=== PATIENT | female | born 1940 ===

== ENCOUNTER 2016-08-20 20:37 | Inpatient (IN) | payer MEDICARE, OTHER ==
[2016-08-20 20:37] VITALS: BMI 22.8
[2016-08-20] MEDS ORDERED: Sodium Chloride 0.9% 1,000 ML IV STA (21:21)
[2016-08-20] MEDS ORDERED: Iohexol 240 (50 ml) PO ONE (21:21)
[2016-08-20] MEDS ORDERED: Iohexol 240 (50 ml) ONE (21:51)
--- NOTE | 2016-08-20 22:02 | ED PDOC ---
HPI: General Adult Time Seen by Provider: 08/20/16 21:06 Chief Complaint (Nursing): Flu-like Symptoms Chief Complaint (Provider): Fever, fall History Per: Patient, Family (son) Additional Complaint(s): Pt. presents with son and states for the past week she's had fever, bodyaches, cough. States that 2 days ago while taking a shower she slipped on soap and landed on her R side injuring her R hip and R flank area. Pt. was able to get up on her own immediately. Denies hematuria, head injury, sick contacts, recent travel, N/V/D, melena, hematochezia, BRBPR, neck pain. Past Medical History Reviewed: Historical Data, Nursing Documentation, Vital Signs Vital Signs: Last Vital Signs Temp 97.4 F L 08/21/16 03:30 Pulse 82 08/21/16 03:30 Resp 19 08/21/16 03:30 BP 94/55 L 08/21/16 03:30 Pulse Ox 99 08/20/16 22:02 - Medical History PMH: Bronchitis, CHF, Gall Bladder Disease (Cholelithiasis), HTN, Hypercholesterolemia, Pneumonia Denies: Diabetes, HIV, Chronic Kidney Disease - Family History Family History: States: No Known Family Hx - Home Medications Home Medications: Ambulatory Orders Medication Instructions Recorded Pentoxifylline [Pentoxil] 400 mg PO TID #0 ter 03/07/15 Tramadol Hydrochloride [Tramadol] 50 mg PO DAILY #0 tab 03/07/15 traMADol [Ultram] 50 mg PO TID PRN #12 tab 07/12/15 - Allergies Allergies/Adverse Reactions: Allergies Allergy/AdvReac Type Severity Reaction Status Date / Time cefadroxil Allergy RASH Verified 08/20/16 20:40 Review of Systems ROS Statement: Except As Marked, All Systems Reviewed And Found Negative Constitutional: Positive for: Fever Respiratory: Positive for: Cough Gastrointestinal: Positive for: Abdominal Pain Physical Exam - Reviewed Nursing Documentation Reviewed: Yes Vital Signs Reviewed: Yes - Physical Exam Appears: Positive for: Well, Non-toxic, No Acute Distress Head Exam: Positive for: ATRAUMATIC, NORMAL INSPECTION, NORMOCEPHALIC Skin: Positive for: Normal Color, Warm. Negative for: Rash Eye Exam: Positive for: EOMI, Normal appearance, PERRL ENT: Positive for: Normal ENT Inspection Neck: Positive for: Normal, Painless ROM Cardiovascular/Chest: Positive for: Regular Rate, Rhythm Respiratory: Positive for: Normal Breath Sounds. Negative for: Crackles, Rales Gastrointestinal/Abdominal: Positive for: Normal Exam, Bowel Sounds, Soft, Tenderness (RLQ abdominal tenderness) Back: Positive for: Normal Inspection, R CVA Tenderness (with large ecchymotic area) Extremity: Positive for: Normal ROM, Other (R lateral hip tenderness without pelvic tenderness or deformity). Negative for: Calf Tenderness Neurologic/Psych: Positive for: Alert, Oriented - Laboratory Results Result Diagrams: 08/20/16 21:40 08/21/16 01:55 - ECG O2 Sat by Pulse Oximetry: 99 - Radiology X-Ray: Interpreted by Me (CXR) X-Ray Interpretation: No Acute Disease (RML infiltrate) - Progress ED Course And Treament: Levaquin 500mg IV given for pneumonia. Lactate: 1.8. Chemisty hemolyzed multiple times therefore CT was done without IV contrast. CT abd/pelvis w/ PO contrast: MPRESSION: 1. Probable multifocal pneumonia. Followup to resolution to exclude underlying pathology. 2. Suspect sacral fracture. Correlate clinically for pain in region. 3. Cholelithiasis R hip/pelvic x-ray: no fx IV NS bolus given. Case d/w Dr. Gibbs and informed of lack of IV contrast with CT scan. Arrangements made for admission. ED OBSERVATION Date of observation admission: 08/20/16 Time of observation admission: 22:02 - Observation admission statement Patient is being placed in observation because:: Abdominal pain, fall, fever - Progress Note Progress Note: 08/20/16 22:[address] abd/pelvis, CT head, CXR, R hip x-ray ordered. Disposition - Clinical Impression Clinical Impression: Pneumonia, Traumatic ecchymosis of flank - Patient ED Disposition Is Patient to be Admitted: Yes - Disposition Disposition Time: :17 Condition: STABLE
[2016-08-20 22:33] LABS: BASO # 0.1 K/uL (0.0-0.2); BASO % 0.3 % (0.0-2.0); LYMPH # 2.8 K/uL (1.0-4.3); MEAN CELL VOLUME 96.3 fl (81.0-99.0); MEAN CORPUSCULAR HGB CONC 32.2 g/dL (33.0-37.0); MEAN PLATELET VOLUME 9.1 fl (7.2-11.7); MONO # 1.9 K/uL (0.0-0.8); MONO % 6.7 % (0.0-10.0); NEUT # 23.5 K/uL (1.8-7.0); NRBC % 0.1 % (0.0-0.0); RED CELL DISTRIBUTION WIDTH 13.8 % (11.5-14.5); WHITE BLOOD COUNT 28.3 K/uL (4.8-10.8)
[2016-08-21 00:08] LABS: VENOUS BLOOD GAS BASE EXCESS -13.3 mmol/L (0.0-2.0); VENOUS BLOOD GAS MODE ROOM AIR; VENOUS BLOOD GAS PCO2 62 mmHg (40-60); VENOUS BLOOD PH 7.06 (7.32-7.43)
[2016-08-21] MEDS ORDERED: Iohexol 300 50 ML ONE (00:12)
[2016-08-21] MEDS ORDERED: Sodium Chloride 0.9% 50 ML IV ONE (00:12)
--- NOTE | 2016-08-21 00:26 | CT ---
EXAM: CT Head Without Intravenous Contrast. CLINICAL HISTORY: 75 years old, female; Injury or trauma; Fall; Initial encounter; Blunt trauma (contusions or hematomas) TECHNIQUE: Axial computed tomography images of the head/brain without intravenous contrast. This CT exam was performed using one or more of the following dose reduction techniques: automated exposure control, adjustment of the mA and/or kV according to patient size, and/or use of iterative reconstruction technique. Coronal and sagittal reformatted images were created and reviewed. COMPARISON: CT - HEAD W/O CONTRAST 03/18/2014 8:14:09 AM FINDINGS: Brain: Mild atrophy. No intracranial hemorrhage. No mass. Calcifications of basal ganglia, deep white matter, cerebellum, stable. Minimal decreased attenuation within periventricular white matter. No edema. Ventricles: No hydrocephalus. Bones/joints: No acute fracture. Soft tissues: Unremarkable. Vasculature: Minimal atherosclerotic disease of intracranial arteries. Sinuses: Near complete opacification of LEFT maxillary sinus. [id number] mucosal thickening/fluid of RIGHT maxillary sinus. [id number] mucosal thickening/fluid of sphenoid sinuses. Mild mucosal thickening/fluid of frontal sinuses. Moderate to extensive mucosal thickening/opacification of ethmoid sinuses. Mastoid air cells: Partial opacification of LEFT mastoid. Orbits: Unremarkable as visualized. IMPRESSION: 1. No intracranial hemorrhage. 2. Nonspecific white matter changes. 3. Sinus disease. 4. Mastoid disease. 5. Incidental/non-acute findings are described above.
--- NOTE | 2016-08-21 00:54 | CT ---
EXAM: CT Abdomen and Pelvis With Intravenous Contrast. CLINICAL HISTORY: 75 years old, female; Pain; Abdominal pain; Flank; Right; Additional info: Fall, abd pain TECHNIQUE: Axial computed tomography images of the abdomen and pelvis with intravenous contrast. This CT exam was performed using one or more of the following dose reduction techniques: automated exposure control, adjustment of the mA and/or kV according to patient size, and/or use of iterative reconstruction technique. Coronal and sagittal reformatted images were created and reviewed. COMPARISON: No relevant prior studies available. FINDINGS: Limitations: Lack of intravenous contrast. Motion artifact - mild. Lower thorax: Minimal atelectasis. Mild patchy and confluent airspace opacities RIGHT middle, LEFT lower lobes. ABDOMEN: Liver: Unremarkable. No mass. Gallbladder and bile ducts: Calcified gallstones. No ductal dilation. Pancreas: No ductal dilation. No mass. Spleen: No splenomegaly. Adrenals: No mass. Kidneys and ureters: No renal calculi. Stomach and bowel: No definite mural thickening. No obstruction. Appendix: No findings to suggest acute appendicitis. PELVIS: Bladder: Unremarkable. Reproductive: Unremarkable as visualized. ABDOMEN and PELVIS: Intraperitoneal space: No significant fluid collection. No free air. Bones/joints: Acute angulation anterior cortex distal sacrum. Soft tissues: Unremarkable. Vasculature: Unremarkable. No abdominal aortic aneurysm. Lymph nodes: No pathologically enlarged lymph nodes. IMPRESSION: 1. Probable multifocal pneumonia. Followup to resolution to exclude underlying pathology. 2. Suspect sacral fracture. Correlate clinically for pain in region. 3. Cholelithiasis. 4. Incidental/non-acute findings are described above.
[2016-08-21 01:51] LABS: ABG ALLEN TEST YES; ARTERIAL BLOOD GAS HCO3 23.8 mmol/L (21-28); ARTERIAL BLOOD GAS MODE ROOM AIR; ARTERIAL BLOOD GAS PH 7.49 (7.35-7.45); ARTERIAL BLOOD GAS PO2 86 mm/Hg (80-100)
[2016-08-21 02:07] LABS: ALKALINE PHOSPHATASE 745 U/L (38-126); ALT/SGPT 45 U/L (9-52); AST/SGOT 58 U/L (14-36); BILIRUBIN,TOTAL 5.1 mg/dl (0.2-1.3); BLOOD UREA NITROGEN 21 mg/dl (7-17); CALCIUM 7.9 mg/dL (8.4-10.2); CARBON DIOXIDE 16 mmol/L (22-30); CHLORIDE 99 mmol/L (98-107); GFR AFRICAN-AMERICAN > 60; GLUCOSE,RANDOM 103 mg/dL (65-105); POTASSIUM 3.3 MMOL/L (3.6-5.0); SODIUM 125 mmol/l (132-148); TOTAL PROTEIN 6.8 G/DL (6.3-8.2)
[2016-08-21 02:08] LABS: ALB/GLOB RATIO 0.7 (1.0-2.1)
[2016-08-21] MEDS ORDERED: Sodium Chloride 0.9% 1,000 ML IV STA (02:12)
--- NOTE | 2016-08-21 02:25 | CP.PCM.HP ---
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 She has been feeling pain on the R side. She did not hit her head or have LOC. She also notes some respiratory symptoms and fatigue. Respiratory symptoms including cough and congestion started several days ago but got worse over past 2 days. Denies f/c/n/v/d. PMD: Charli ROS: 14 systems reviewed, negative other than HPI MHx: CREST syndrome/Reynauds, HTN, HLD, ?CHF, and cholelithiasis Allergies: Cefadroxil Medications: Pending Family Hx: Reviewed, no findings Social Hx: Lives at home, no tobacco or EtOH Surrogate Decision Maker: Iris, child Present on Admission - Present on Admission Any Indicators Present on Admission: No Past Patient History - Infectious Disease Hx of Infectious Diseases: None - Tetanus Immunizations Tetanus Immunization: Unknown - Past Medical History & Family History Past Medical History?: Yes - Past Social History Smoking Status: Never Smoked - CARDIAC Hx Congestive Heart Failure: Yes Hx Hypercholesterolemia: Yes Hx Hypertension: Yes - PULMONARY Hx Bronchitis: Yes Hx Pneumonia: Yes - NEUROLOGICAL Hx Neurological Disorder: No - HEENT Hx HEENT Problems: No - RENAL Hx Chronic Kidney Disease: No - ENDOCRINE/METABOLIC Hx Endocrine Disorders: No - HEMATOLOGICAL/ONCOLOGICAL Hx Human Immunodeficiency Virus (HIV): No - INTEGUMENTARY Hx Dermatological Problems: No - MUSCULOSKELETAL/RHEUMATOLOGICAL Hx Musculoskeletal Disorders: Yes Hx Falls: No Other/Comment: raynauds CREST syndrome; skin graft left foot (05/2013) and right posterior leg (2009) - GASTROINTESTINAL Hx Gall Bladder Disease: Yes (Cholelithiasis) - GENITOURINARY/GYNECOLOGICAL Hx Genitourinary Disorders: No - PSYCHIATRIC Hx Psychophysiologic Disorder: No Hx Substance Use: No - SURGICAL HISTORY Hx Surgeries: Yes Hx Cataract Extraction: Yes Other/Comment: BLE skin grafts. Foot Surgery - ANESTHESIA Hx Anesthesia: Yes Hx Anesthesia Reactions: No Hx Malignant Hyperthermia: No Meds Allergies/Adverse Reactions: Allergies Allergy/AdvReac Type Severity Reaction Status Date / Time cefadroxil Allergy RASH Verified 08/20/16 20:40 Physical Exam - Constitutional Appears: No Acute Distress - Head Exam Head Exam: ATRAUMATIC, NORMOCEPHALIC - Eye Exam Eye Exam: EOMI, PERRL - ENT Exam ENT Exam: Mucous Membranes Moist - Neck Exam Neck exam: Positive for: Full Rom - Respiratory Exam Respiratory Exam: Rhonchi, NORMAL BREATHING PATTERN - Cardiovascular Exam Cardiovascular Exam: REGULAR RHYTHM, +S1, +S2 - GI/Abdominal Exam GI & Abdominal Exam: Normal Bowel Sounds, Soft - Extremities Exam Extremities exam: Positive for: full ROM, normal inspection - Neurological Exam Neurological exam: Alert, CN II-XII Intact, Oriented x3 - Psychiatric Exam Psychiatric exam: Normal Affect, Normal Mood - Skin Skin Exam: Dry, Warm Results - Vital Signs Recent Vital Signs: Last Vital Signs Temp 97.8 F 08/20/16 20:41 Pulse 114 H 08/20/16 20:41 Resp 14 08/20/16 20:41 BP 110/57 L 08/20/16 20:41 Pulse Ox 99 08/20/16 22:02 - Labs Result Diagrams: 08/20/16 21:40 08/21/16 01:55 - Imaging and Cardiology CT scan - abdomen Status: Report reviewed by me (No fx, cholecystitis) Assessment & Plan (1) CAP (community acquired pneumonia) Assessment and Plan: This is a 75 y/o female with multiple chronic problems presenting with CAP and falls. Also with hyponatremia. -Admit med/surg -Continue Levaquin 750 IV daily -Duonebs q6h PRN -Hyponatremia likely 2/2 vol dep; hydrate overnight and recheck BMP; if not improved, further w/u -Pain mgmt with tylenol and tramadol -DVT PPx -- Lovenox Status: Acute Priority: High (2) DVT prophylaxis Status: Acute Priority: High
[2016-08-21] MEDS ORDERED: Albuterol-Ipratrop 3 mg / 0.5 (3 ml) UD INH PRN (02:27)
[2016-08-21] MEDS ORDERED: Sodium Chloride 0.9% 1,000 ML IV SCH (02:30)
[2016-08-21 06:46] LABS: BASO % 0.2 % (0.0-2.0); HEMATOCRIT 30.1 % (34.0-47.0); LYMPH # 2.3 K/uL (1.0-4.3); LYMPH % 9.2 % (20.0-40.0); MEAN CELL VOLUME 93.2 fl (81.0-99.0); MEAN CORPUSCULAR HEMOGLOBIN 31.6 pg (27.0-31.0); MEAN PLATELET VOLUME 9.4 fl (7.2-11.7); MONO # 1.8 K/uL (0.0-0.8); MONO % 7.4 % (0.0-10.0); NEUT # 20.3 K/uL (1.8-7.0); NEUT % 83.2 % (50.0-75.0); PLATELET COUNT 170 K/uL (130-400); RED CELL DISTRIBUTION WIDTH 13.3 % (11.5-14.5); WHITE BLOOD COUNT 24.5 K/uL (4.8-10.8)
[2016-08-21 07:23] LABS: BLOOD UREA NITROGEN 24 mg/dl (7-17); CALCIUM 7.9 mg/dL (8.4-10.2); CARBON DIOXIDE 18 mmol/L (22-30); CHLORIDE 100 mmol/L (98-107); GFR AFRICAN-AMERICAN > 60; GLUCOSE,RANDOM 120 mg/dL (65-105); POTASSIUM 3.4 MMOL/L (3.6-5.0); SODIUM 126 mmol/l (132-148)
[2016-08-21] MEDS: Enoxaparin 40 mg Syringe SC SCH (08:36)
--- NOTE | 2016-08-21 09:18 | CP.PCM.PN ---
Subjective - Date & Time of Evaluation Date of Evaluation: 08/21/16 Time of Evaluation: 10:00 - Subjective Subjective: Patient seen and examined bedside . Daughter present . Chart reviewed and care resumed.75 y/o female patient with PMH Crest/ Raynaud syndrome, HTN, Cholelithiasis , hard on hearing, chronic left foot drop9 uses brace) brought in by her daughter for evaluation since daughter noticed she could not hear well (less than her baseline) and because she had a fall at home few days ago in the shower. She has been feeling pain on the R side. She did not hit her head or have LOC. She also notes some respiratory symptoms and fatigue. Respiratory symptoms including cough and congestion started several days ago but got worse over past 2 days. Denies f/c/n/v/d. Patient complaining of pain to left ear and has some yellowish drainage from left ear CXR showed possible multifocal pneumonia, patient afebrile WBC elevated [address] pelvis showed suspected sacral fracture but patient has no tenderness to the area and does not complain of pain. Objective - Vital Signs/Intake and Output Vital Signs (last 24 hours): Temp Pulse Resp BP Pulse Ox 98.3 F 59 L 18 95/56 L 96 08/21/16 08:09 08/21/16 08:09 08/21/16 08:09 08/21/16 08:09 08/21/16 08:09 - Medications Medications: Current Medications Acetaminophen (Tylenol 325mg Tab) 650 mg PO Q6 PRN PRN Reason: Pain, Mild (1-3) Acetaminophen (Tylenol 325mg Tab) 650 mg PO Q6 PRN PRN Reason: Fever >100.4 F Albuterol/Ipratropium (Duoneb 3 Mg/0.5 Mg (3 Ml) Ud) 3 ml INH RQ6 PRN PRN Reason: Shortness of Breath Enoxaparin Sodium (Lovenox) 40 mg SC DAILY ARNAUD PRN Reason: Protocol Last Admin: 08/21/16 08:36 Dose: 40 mg Home Med (Patient's Own Medication) 1 unit OU DAILY ARNAUD Home Med (Patient's Own Medication) 1 unit OU DAILY ARNAUD Levofloxacin/Dextrose (Levaquin 750mg) 150 mls @ 100 mls/hr IVPB DAILY ARNAUD Sodium Chloride (Sodium Chloride 0.9%) 1,000 mls @ 100 mls/hr IV .Q10H [facility] Stop: 08/21/16 12:29 Last Admin: 08/21/16 04:03 Dose: 100 mls/hr Ondansetron HCl (Zofran Inj) 4 mg IVP Q6 PRN PRN Reason: Nausea/Vomiting Pentoxifylline (Pentoxil) 400 mg PO TID [facility] Last Admin: 08/21/16 08:35 Dose: 400 mg Tramadol HCl (Ultram) 50 mg PO Q4 [facility] - Labs Labs: 08/21/16 05:30 08/21/16 05:30 PT 12.6 SECONDS (9.6-11.2) H 08/21/16 01:55 INR 1.21 (0.92-1.08) H 08/21/16 01:55 APTT SECONDS (23.3-32.5) 08/21/16 01:55 - Constitutional Appears: Non-toxic, No Acute Distress, Other (hard on hearing ) - Head Exam Head Exam: ATRAUMATIC, NORMAL INSPECTION, NORMOCEPHALIC - Eye Exam Eye Exam: EOMI, Normal appearance, PERRL Pupil Exam: NORMAL ACCOMODATION - ENT Exam ENT Exam: Mucous Membranes Moist, Normal Exam - Neck Exam Neck Exam: Full ROM, Normal Inspection - Respiratory Exam Respiratory Exam: Rales (bilateral), Rhonchi (scattered to the right), NORMAL BREATHING PATTERN. absent: Accessory Muscle Use, Prolonged Expiratory Phase, Respiratory Distress - Cardiovascular Exam Cardiovascular Exam: REGULAR RHYTHM, RRR, +S1, +S2. absent: JVD - GI/Abdominal Exam GI & Abdominal Exam: Soft, Normal Bowel Sounds. absent: Guarding, Tenderness, Rebound - Rectal Exam Rectal Exam: Deferred - Extremities Exam Extremities Exam: Full ROM, Normal Capillary Refill, Normal Inspection. absent : Pedal Edema Additional comments: left foot drop - Back Exam Back Exam: NORMAL INSPECTION - Neurological Exam Neurological Exam: Alert, Awake, CN II-XII Intact - Psychiatric Exam Psychiatric exam: Normal Affect - Skin Skin Exam: Dry, Normal Color, Warm Additional comments: right flank echymotic area right superior to pelvic rim echymotic area Assessment and Plan - Assessment and Plan (Free Text) Assessment: 75 y/o female with CREST syndrome/Reynauds, HTN, cholelithiasis and left foot drop came in for evaluation after a fall several days ago in the bathtub after slipping on soap. She has been feeling pain on the R side. She did not hit her head or have LOC. She also notes some respiratory symptoms and fatigue. Respiratory symptoms including cough and congestion started several days ago but got worse over past 2 days. Denies f/c/n/v/d. 1. Fall complaining of right flank pain Ct pelvis showed suspected sacral fracture. Given her clinical presentation sacral fracture is unlikely Ct head showed no acute pathology No tenderness to sacral area with palpation, no hematoma or pain with movement Start physical therapy as tolerated , full weight bearing to LE Asked family to bring brace to E since patient has chronic left foot drop , for PT training pain management PRN. Avoid narcotics due to low BP and her age SW eval for home discharge planning. Family would like home physical therapy and also will nee home health services 2.CAP (community acquired pneumonia) CXR showed multifocal pneumonia to the right hemithorax ( patient has history of interstitial lung disease) WBC elevated to 28k---24 k but patient afebrile Continue Levaquiine IV 3. Left otitis externa start Cipro ottic ear drops continue levaquine 4.Hyponatremia/non anion gap metabolic acidosis Most likely secondary to volume depletion Continue IVF 5. Hearing loss As per daughter patient developed hearing loss after was treated with antibiotics for sepsis years ago Worsening hearing loss most likely related to age and external otitis Will treat for otitis externa will need evaluation with audiogram as out patient 6. Mild anemia Most likely dilutional 7. Glaucoma resume eye drops 8.Interstitial lung disease/ crest syndrome on Pentoxyfilline 9 DVT prophylaxis lovenox
--- NOTE | 2016-08-21 10:20 | RAD ---
PROCEDURE: Right Hip Radiographs. HISTORY: trauma COMPARISON: None. FINDINGS: BONES: No evidence of acute fracture or. Diffuse osteopenia noted. JOINTS: Normal. SOFT TISSUES: Normal. OTHER FINDINGS: None. IMPRESSION: No evidence of acute fracture or dislocation. Diffuse osteopenia.
--- NOTE | 2016-08-21 10:21 | RAD ---
HISTORY: cough COMPARISON: Comparison is made to the previous study dated 03/03/2015 TECHNIQUE: Chest PA and lateral FINDINGS: LUNGS: Interval appearance of focal hazy opacity at the midportion of the right lung since the previous exam. Interval worsening of patchy opacities at the peripheral right upper lobe since the previous study. PLEURA: No significant pleural effusion identified. No pneumothorax apparent. CARDIOVASCULAR: Normal. OSSEOUS STRUCTURES: Diffuse osteopenia seen. VISUALIZED UPPER ABDOMEN: Normal. OTHER FINDINGS: None. IMPRESSION: Interval appearance of new opacities at the right mid and upper lung since the previous exam.
[2016-08-21 10:57] LABS: BASOPHIL 1 % (0-2); NEUTROPHIL 75 % (42-75); REACTIVE LYMPHOCYTES 4 % (0-0); TOTAL CELLS COUNTED 100
[2016-08-21] MEDS: Olopatadine 0.1% Opht SOLN OU SCH (16:45)
[2016-08-21] MEDS: Sodium Chloride 0.9% 1,000 ML IV SCH (20:45)
[2016-08-21] MEDS: Ciprofloxacin/Dexamethasone OTIC SUSP AD SCH (20:46)
[2016-08-22] MEDS: Sodium Chloride 0.9% 1,000 ML IV SCH ×2 (05:17→15:53)
[2016-08-22 06:59] LABS: MEAN CELL VOLUME 94.1 fl (81.0-99.0); MEAN CORPUSCULAR HEMOGLOBIN 31.9 pg (27.0-31.0); RED CELL DISTRIBUTION WIDTH 13.3 % (11.5-14.5); WHITE BLOOD COUNT 13.3 K/uL (4.8-10.8)
[2016-08-22 07:05] LABS: BLOOD UREA NITROGEN 19 mg/dl (7-17); CALCIUM 8.7 mg/dL (8.4-10.2); CARBON DIOXIDE 20 mmol/L (22-30); CHLORIDE 107 mmol/L (98-107); GFR AFRICAN-AMERICAN > 60; GLUCOSE,RANDOM 86 mg/dL (65-105); POTASSIUM 3.8 MMOL/L (3.6-5.0); SODIUM 141 mmol/l (132-148)
[2016-08-22] MEDS: Ciprofloxacin/Dexamethasone OTIC SUSP AD SCH ×2 (09:49→18:49)
[2016-08-22] MEDS: Olopatadine 0.1% Opht SOLN OU SCH (09:49)
[2016-08-22] MEDS: Enoxaparin 40 mg Syringe SC SCH (09:49)
--- NOTE | 2016-08-22 09:53 | CP.PCM.PN ---
Subjective - Date & Time of Evaluation Date of Evaluation: 08/22/16 Time of Evaluation: 09:45 - Subjective Subjective: No fever ear pain better minimal cough no SOB no CP no abd pain no N/V Objective - Vital Signs/Intake and Output Vital Signs (last 24 hours): Temp Pulse Resp BP Pulse Ox 99.3 F 75 28 H 125/72 97 08/22/16 08:28 08/22/16 08:28 08/22/16 08:28 08/22/16 08:28 08/22/16 08:28 - Medications Medications: Current Medications Acetaminophen (Tylenol 325mg Tab) 650 mg PO Q6 PRN PRN Reason: Pain, Mild (1-3) Last Admin: 08/21/16 15:22 Dose: 650 mg Acetaminophen (Tylenol 325mg Tab) 650 mg PO Q6 PRN PRN Reason: Fever >100.4 F Albuterol/Ipratropium (Duoneb 3 Mg/0.5 Mg (3 Ml) Ud) 3 ml INH RQ6 PRN PRN Reason: Shortness of Breath Ciprofloxacin/Dexamethasone (Ciprodex Otic) 4 drop AD BID [facility] Last Admin: 08/22/16 09:49 Dose: 4 drop Enoxaparin Sodium (Lovenox) 40 mg SC DAILY ARNAUD PRN Reason: Protocol Last Admin: 08/22/16 09:49 Dose: 40 mg Home Med (Patient's Own Medication) 1 unit OU DAILY [facility] Last Admin: 08/22/16 09:50 Dose: 1 unit Levofloxacin/Dextrose (Levaquin 750mg) 150 mls @ 100 mls/hr IVPB DAILY [facility] Last Admin: 08/22/16 09:48 Dose: 100 mls/hr Sodium Chloride (Sodium Chloride 0.9%) 1,000 mls @ 100 mls/hr IV .Q10H [facility] Stop: 08/22/16 18:46 Last Admin: 08/22/16 05:17 Dose: 100 mls/hr Olopatadine HCl (Patanol 0.1% Opht Soln) 1 drop OU DAILY [facility] Last Admin: 08/22/16 09:49 Dose: 1 drop Ondansetron HCl (Zofran Inj) 4 mg IVP Q6 PRN PRN Reason: Nausea/Vomiting Last Admin: 08/21/16 13:20 Dose: 4 mg Pentoxifylline (Pentoxil) 400 mg PO TID ARNAUD Last Admin: 08/22/16 09:48 Dose: 400 mg Tramadol HCl (Ultram) 50 mg PO Q4 PRN PRN Reason: Pain, severe (8-10) - Labs Labs: 08/22/16 06:15 08/22/16 06:15 PT 12.6 SECONDS (9.6-11.2) H 08/21/16 01:55 INR 1.21 (0.92-1.08) H 08/21/16 01:55 APTT SECONDS (23.3-32.5) 08/21/16 01:55 - Constitutional Appears: No Acute Distress, Chronically Ill - Head Exam Head Exam: NORMAL INSPECTION, NORMOCEPHALIC - Eye Exam Eye Exam: EOMI, Normal appearance Pupil Exam: NORMAL ACCOMODATION - ENT Exam ENT Exam: Mucous Membranes Dry, Normal External Ear Exam - Neck Exam Neck Exam: Full ROM. absent: Meningismus - Respiratory Exam Respiratory Exam: Rales (minimal rales bases), Rhonchi, NORMAL BREATHING PATTERN. absent: Respiratory Distress - Cardiovascular Exam Cardiovascular Exam: REGULAR RHYTHM, +S1, +S2 - GI/Abdominal Exam GI & Abdominal Exam: Soft, Normal Bowel Sounds. absent: Tenderness - Extremities Exam Extremities Exam: Normal Capillary Refill. absent: Calf Tenderness, Pedal Edema - Back Exam Back Exam: absent: CVA tenderness (L), CVA tenderness (R), paraspinal tenderness , vertebral tenderness - Neurological Exam Neurological Exam: Alert, Awake, Oriented x3 Additional comments: moves all extremities - Psychiatric Exam Psychiatric exam: Normal Affect, Normal Mood - Skin Skin Exam: Dry, Normal Color, Warm Assessment and Plan (1) CAP (community acquired pneumonia) Status: Acute (2) Otitis media Status: Acute (3) Sinusitis, acute Status: Acute (4) Mastoiditis Status: Acute (5) CREST (calcinosis, Raynaud's phenomenon, esophageal dysfunction, sclerodactyly, telangiectasia) Status: Chronic (6) ILD (interstitial lung disease) Status: Chronic (7) DVT prophylaxis Status: Acute - Assessment and Plan (Free Text) Assessment: 75 y/o female with CREST syndrome/Reynauds, HTN, cholelithiasis and left foot drop came in for evaluation after a fall several days ago in the bathtub after slipping on soap. She has been feeling pain on the R side. She did not hit her head or have LOC. She also notes some respiratory symptoms and fatigue. Respiratory symptoms including cough and congestion started several days ago but got worse over past 2 days. Denies f/c/n/v/d. 1. Fall complaining of right flank pain Ct pelvis showed suspected sacral fracture. Given her clinical presentation sacral fracture is unlikely Ct head showed no acute pathology No tenderness to sacral area with palpation, no hematoma or pain with movement Start physical therapy as tolerated , full weight bearing to LE Asked family to bring brace to E since patient has chronic left foot drop , for PT training pain management PRN. Avoid narcotics due to low BP and her age Plan for TCU for PT and IV abx 2.CAP (community acquired pneumonia) CXR showed multifocal pneumonia to the right hemithorax ( patient has history of interstitial lung disease) WBC elevated to 28k now down to 13K Continue Levaquin IV 3. Acute Sinusitis/Otitis /Mastoiditis pt complains of left ear pain and hearing loss cont Cipro otic ear drops continue levaquin IV ENT eval as outpt 4.Hyponatremia/non anion gap metabolic acidosis, improving Most likely secondary to volume depletion Continue IVF 5. Hearing loss As per daughter patient developed hearing loss after was treated with antibiotics for sepsis years ago Worsening hearing loss most likely related to age and otitis will need evaluation with audiogram and ENT as out patient 6. Mild anemia Most likely dilutional 7. Glaucoma resume eye drops 8.Interstitial lung disease/ Crest syndrome on Pentoxyfilline 9 DVT prophylaxis lovenox
[2016-08-23] MEDS ORDERED: Hydrocortisone- 200 MG in Sodium Chloride 0.9% 100 ML IV ONE ×2 (00:01→06:00)
[2016-08-23 06:26] LABS: BASO % 0.3 % (0.0-2.0); EOS % 0.1 % (0.0-4.0); LYMPH # 1.9 K/uL (1.0-4.3); LYMPH % 13.6 % (20.0-40.0); MEAN CELL VOLUME 92.7 fl (81.0-99.0); MEAN CORPUSCULAR HEMOGLOBIN 31.3 pg (27.0-31.0); MEAN CORPUSCULAR HGB CONC 33.7 g/dL (33.0-37.0); MEAN PLATELET VOLUME 8.9 fl (7.2-11.7); MONO # 1.3 K/uL (0.0-0.8); NEUT # 10.9 K/uL (1.8-7.0); NRBC % 0.1 % (0.0-0.0); WHITE BLOOD COUNT 14.2 K/uL (4.8-10.8)
[2016-08-23] MEDS ORDERED: DiphenhydrAMINE 50 mg/ml Inj IVP ONE (06:30)
[2016-08-23 06:51] LABS: CHLORIDE 105 mmol/L (98-107); POTASSIUM 3.3 MMOL/L (3.6-5.0); SODIUM 138 mmol/l (132-148)
[2016-08-23 06:54] LABS: GFR AFRICAN-AMERICAN > 60
[2016-08-23 06:55] LABS: BLOOD UREA NITROGEN 12 mg/dl (7-17); CALCIUM 8.7 mg/dL (8.4-10.2); CARBON DIOXIDE 22 mmol/L (22-30); GLUCOSE,RANDOM 91 mg/dL (65-105)
[2016-08-23] MEDS ORDERED: Potassium Chloride 20 mEq ER Tab PO ONE (08:30)
[2016-08-23] MEDS: Enoxaparin 40 mg Syringe SC SCH (09:11)
[2016-08-23] MEDS: Olopatadine 0.1% Opht SOLN OU SCH (09:12)
[2016-08-23] MEDS: Ciprofloxacin/Dexamethasone OTIC SUSP AD SCH ×2 (09:13→16:46)
--- NOTE | 2016-08-23 10:45 | CP.PCM.CON ---
History of Present Illness - History of Present Illness History of Present Illness: Infectious Disease Consultation Note- asked to see this patient at the request of the hospitalist. HPI- History obtained mostly from the medical chart and the hospitalist. Pt. is a 75 y/o female with pmh of crest syndrome/Reynauds , HTN, cholelithiasis who was admitted for pain in her right side secondary to fall in the bathtub few days ago, she didn't have any LOC . She also had noted some cough and congestion and was found to have ? pneumonia on her CXR and also found to have sinusitis and mastoidits on the CT report. She does explain that she ahs had some ear pain at home but denies having been on any antibiotics for this at home. Pt. has already been started on Anaid bx by the primary team for the CAp and otic abx for the otitis and mastoiditis and i'm being asked to evaluate and help with abx management. MHx: CREST syndrome/Reynauds, HTN, HLD, ?CHF, and cholelithiasis Allergies: Cefadroxil Social Hx: Lives at home, no tobacco or EtOH Review of Systems - Review of Systems Review of Systems: ROS- denies any fever or chills, denies any AMADOR, does states that had some b/l ear pain past few days but not at this time, denies any discahrge from her ears, denies any facial pain, mild cough , denies any sob, denies any chest pain, denies any n/v, denies any abd. pain. denies any dysurea, Past Patient History - Infectious Disease Hx of Infectious Diseases: None - Tetanus Immunizations Tetanus Immunization: Unknown - Past Medical History & Family History Past Medical History?: Yes - Past Social History Smoking Status: Never Smoked Alcohol: None Drugs: Denies - CARDIAC Hx Congestive Heart Failure: Yes Hx Hypercholesterolemia: Yes Hx Hypertension: Yes - PULMONARY Hx Bronchitis: Yes Hx Pneumonia: Yes - NEUROLOGICAL Hx Neurological Disorder: No - HEENT Hx HEENT Problems: No - RENAL Hx Chronic Kidney Disease: No - ENDOCRINE/METABOLIC Hx Endocrine Disorders: No - INTEGUMENTARY Hx Dermatological Problems: No - MUSCULOSKELETAL/RHEUMATOLOGICAL Hx Musculoskeletal Disorders: Yes Hx Falls: No Other/Comment: raynauds CREST syndrome; skin graft left foot (05/2013) and right posterior leg (2009) - GASTROINTESTINAL Hx Gall Bladder Disease: Yes (Cholelithiasis) - GENITOURINARY/GYNECOLOGICAL Hx Genitourinary Disorders: No - PSYCHIATRIC Hx Psychophysiologic Disorder: No Hx Substance Use: No - SURGICAL HISTORY Hx Surgeries: Yes Hx Cataract Extraction: Yes Other/Comment: BLE skin grafts. Foot Surgery - ANESTHESIA Hx Anesthesia: Yes Hx Anesthesia Reactions: No Hx Malignant Hyperthermia: No Meds Allergies/Adverse Reactions: Allergies Allergy/AdvReac Type Severity Reaction Status Date / Time cefadroxil Allergy RASH Verified 08/20/16 20:40 - Medications Medications: Current Medications Acetaminophen (Tylenol 325mg Tab) 650 mg PO Q6 PRN PRN Reason: Pain, Mild (1-3) Last Admin: 08/21/16 15:22 Dose: 650 mg Acetaminophen (Tylenol 325mg Tab) 650 mg PO Q6 PRN PRN Reason: Fever >100.4 F Albuterol/Ipratropium (Duoneb 3 Mg/0.5 Mg (3 Ml) Ud) 3 ml INH RQ6 PRN PRN Reason: Shortness of Breath Ciprofloxacin/Dexamethasone (Ciprodex Otic) 4 drop AD BID [facility] Last Admin: 08/23/16 09:13 Dose: 4 drop Enoxaparin Sodium (Lovenox) 40 mg SC DAILY [facility] PRN Reason: Protocol Last Admin: 08/23/16 09:11 Dose: 40 mg Home Med (Patient's Own Medication) 1 unit OU DAILY [facility] Last Admin: 08/23/16 09:11 Dose: 1 unit Levofloxacin/Dextrose (Levaquin 750mg) 150 mls @ 100 mls/hr IVPB DAILY [facility] Last Admin: 08/23/16 09:12 Dose: 100 mls/hr Olopatadine HCl (Patanol 0.1% Opht Soln) 1 drop OU DAILY [facility] Last Admin: 08/23/16 09:12 Dose: 1 drop Ondansetron HCl (Zofran Inj) 4 mg IVP Q6 PRN PRN Reason: Nausea/Vomiting Last Admin: 08/21/16 13:20 Dose: 4 mg Pentoxifylline (Pentoxil) 400 mg PO TID [facility] Last Admin: 08/23/16 09:10 Dose: 400 mg Tramadol HCl (Ultram) 50 mg PO Q4 PRN PRN Reason: Pain, severe (8-10) Physical Exam - Constitutional Appears: Non-toxic, No Acute Distress - Head Exam Head Exam: ATRAUMATIC - Eye Exam Eye Exam: EOMI, PERRL - ENT Exam ENT Exam: Normal Oropharynx Additional comments: no tenderness around the ears, no discharge from the ears - Neck Exam Neck exam: Positive for: Full Rom - Respiratory Exam Respiratory Exam: NORMAL BREATHING PATTERN Additional comments: scattered rhonchi , minimal exp wheezing - Cardiovascular Exam Cardiovascular Exam: RRR, +S1, +S2 - GI/Abdominal Exam GI & Abdominal Exam: Normal Bowel Sounds, Soft Additional comments: NT, ND - Extremities Exam Additional comments: no edema B/L LE - Neurological Exam Neurological exam: Alert, Oriented x3 Results - Vital Signs Recent Vital Signs: Last Vital Signs Temp 98.7 F 08/23/16 07:56 Pulse 109 H 08/23/16 07:56 Resp 20 08/23/16 07:56 BP 119/63 08/23/16 07:56 Pulse Ox 94 L 08/23/16 07:56 - Labs Result Diagrams: 08/23/16 05:55 08/23/16 05:55 Labs: Laboratory Results - last 24 hr 08/23/16 05:55 WBC 14.2 H RBC 3.45 L Hgb 10.8 L Hct 32.0 L MCV 92.7 MCH 31.3 H MCHC 33.7 RDW 13.0 Plt Count 248 MPV 8.9 Neut % (Auto) 77.0 H Lymph % (Auto) 13.6 L Pepin % (Auto) 9.0 Eos % (Auto) 0.1 Baso % (Auto) 0.3 Neut # 10.9 H Lymph # 1.9 Pepin # 1.3 H Eos # 0.0 Baso # 0.0 Sodium 138 Potassium 3.3 L Chloride 105 Carbon Dioxide 22 Anion Gap 14 BUN 12 Creatinine 0.6 L Est GFR ( Amer) > 60 Est GFR (Non-Af Amer) > 60 Random Glucose 91 Calcium 8.7 Laboratory Results - last 72 hr 08/20/16 08/20/16 08/20/16 00:24 21:33 21:40 WBC 28.3 H D RBC 3.94 Hgb 12.2 Hct 38.0 MCV 96.3 MCH 31.0 MCHC 32.2 L RDW 13.8 Plt Count 199 MPV 9.1 Neut % (Auto) 83.0 H Lymph % (Auto) 10.0 L Pepin % (Auto) 6.7 Eos % (Auto) 0.0 Baso % (Auto) 0.3 Neut # 23.5 H Lymph # 2.8 Pepin # 1.9 H Eos # 0.0 Baso # 0.1 Neutrophils % (Manual) Band Neutrophils % Lymphocytes % (Manual) Reactive Lymphs % Monocytes % (Manual) Basophils % (Manual) Toxic Granulation Platelet Estimate Hypochromasia (manual) PT INR APTT pCO2 pO2 HCO3 ABG pH ABG Total CO2 ABG O2 Saturation ABG Base Excess Britton Test ABG Potassium VBG pH VBG pCO2 VBG HCO3 VBG Total CO2 VBG O2 Sat (Calc) VBG Base Excess A-a O2 Difference Sodium Chloride Glucose Lactate Vent Mode FiO2 Crit Value Called To Crit Value Called By Crit Value Read Back Blood Gas Notified Time Potassium Carbon Dioxide Anion Gap BUN Creatinine Est GFR ( Amer) Est GFR (Non-Af Amer) Random Glucose Calcium Total Bilirubin AST ALT Alkaline Phosphatase Total Protein Albumin Globulin Albumin/Globulin Ratio Arterial Blood Potassium Influenza Typ A,B (EIA) Negative for flu a/b Blood Type A POSITIVE Antibody Screen Negative BBK History Checked Patient has bt 08/20/16 08/21/16 08/21/16 23:55 01:42 01:55 WBC RBC Hgb Hct MCV MCH MCHC RDW Plt Count MPV Neut % (Auto) Lymph % (Auto) Pepin % (Auto) Eos % (Auto) Baso % (Auto) Neut # Lymph # Pepin # Eos # Baso # Neutrophils % (Manual) Band Neutrophils % Lymphocytes % (Manual) Reactive Lymphs % Monocytes % (Manual) Basophils % (Manual) Toxic Granulation Platelet Estimate Hypochromasia (manual) PT 12.6 H INR 1.21 H APTT pCO2 27 L pO2 48 86 HCO3 23.8 ABG pH 7.49 H ABG Total CO2 21.4 L ABG O2 Saturation 99.3 H ABG Base Excess -1.4 Britton Test Yes ABG Potassium 3.2 L VBG pH 7.06 L* VBG pCO2 62 H VBG HCO3 13.6 VBG Total CO2 19.5 L VBG O2 Sat (Calc) 72.0 H VBG Base Excess -13.3 L A-a O2 Difference 30.0 Sodium 110.0 L* 127.0 L 125 L Chloride 93.0 L 101.0 99 Glucose 89 107 H Lactate 1.8 0.9 Vent Mode Room air FiO2 21.0 21.0 Crit Value Called To marcelo Leger Crit Value Called By Sb Crit Value Read Back Y Blood Gas Notified Time 7 Potassium 3.3 L Carbon Dioxide 16 L Anion Gap 13 BUN 21 H Creatinine 0.7 Est GFR ( Amer) > 60 Est GFR (Non-Af Amer) > 60 Random Glucose 103 Calcium 7.9 L Total Bilirubin 5.1 H AST 58 H D ALT 45 Alkaline Phosphatase 745 H D Total Protein 6.8 Albumin 2.9 L Globulin 3.9 Albumin/Globulin Ratio 0.7 L Arterial Blood Potassium 3.2 L Influenza Typ A,B (EIA) Blood Type Antibody Screen BBK History Checked 08/21/16 08/22/16 08/23/16 05:30 06:15 05:55 WBC 24.5 H 13.3 H 14.2 H RBC 3.23 L 3.40 L 3.45 L Hgb 10.2 L D 10.9 L 10.8 L Hct 30.1 L 32.0 L 32.0 L MCV 93.2 D 94.1 92.7 MCH 31.6 H 31.9 H 31.3 H MCHC 34.0 34.0 33.7 RDW 13.3 13.3 13.0 Plt Count 170 169 248 MPV 9.4 8.9 Neut % (Auto) 83.2 H 77.0 H Lymph % (Auto) 9.2 L 13.6 L Pepin % (Auto) 7.4 9.0 Eos % (Auto) 0.0 0.1 Baso % (Auto) 0.2 0.3 Neut # 20.3 H 10.9 H Lymph # 2.3 1.9 Pepin # 1.8 H 1.3 H Eos # 0.0 0.0 Baso # 0.0 0.0 Neutrophils % (Manual) 75 Band Neutrophils % 5 H Lymphocytes % (Manual) 9 L Reactive Lymphs % 4 H Monocytes % (Manual) 6 Basophils % (Manual) 1 Toxic Granulation Present Platelet Estimate Normal Hypochromasia (manual) Slight PT INR APTT pCO2 pO2 HCO3 ABG pH ABG Total CO2 ABG O2 Saturation ABG Base Excess Britton Test ABG Potassium VBG pH VBG pCO2 VBG HCO3 VBG Total CO2 VBG O2 Sat (Calc) VBG Base Excess A-a O2 Difference Sodium 126 L 141 138 Chloride 100 107 105 Glucose Lactate Vent Mode FiO2 Crit Value Called To Crit Value Called By Crit Value Read Back Blood Gas Notified Time Potassium 3.4 L 3.8 3.3 L Carbon Dioxide 18 L 20 L 22 Anion Gap 11 18 14 BUN 24 H 19 H 12 Creatinine 0.8 0.8 0.6 L Est GFR ( Amer) > 60 > 60 > 60 Est GFR (Non-Af Amer) > 60 > 60 > 60 Random Glucose 120 H 86 91 Calcium 7.9 L 8.7 8.7 Total Bilirubin AST ALT Alkaline Phosphatase Total Protein Albumin Globulin Albumin/Globulin Ratio Arterial Blood Potassium Influenza Typ A,B (EIA) Blood Type Antibody Screen BBK History Checked Microbiology 08/20/16 22:00 Blood-Venous Blood Culture - Preliminary NO GROWTH AFTER 48 HOURS 08/20/16 21:40 Blood-Venous Blood Culture - Preliminary NO GROWTH AFTER 48 HOURS Accession No. : [id number] Patient Name / ID : KENYON SCHMIDT / [id number] Exam Date : 08/20/2016 23:57:22 ( Approved ) Study Comment : Sex / Age : F / 75Y Creator : Franco Daigle MD Dictator : Administrative Associate : Interior Design Director : Franco Daigle MD Approver2 : Report Date : 08/21/2016 00:26:00 My Comment : [facility] Division of Radiology [address] [place] [address] Tel. no. Patient Name: BRAYAN PRESCOTT Pt. Address: [address] [place] [address]. Rec #: [id number] [place] [address]: Arsen ÁLVAREZ, Marcelo Avalos Pt HOME Order Location: CathyLAILA : 1940 Female Age: 75 Order #: [id number] Reason for exam: fall CT Scan HEAD W/O CONTRAST Exam Date: 08/20/16 This imaging exam was performed at [facility] EXAM: CT Head Without Intravenous Contrast. CLINICAL HISTORY: 75 years old, female; Injury or trauma; Fall; Initial encounter; Blunt trauma (contusions or hematomas) TECHNIQUE: Axial computed tomography images of the head/brain without intravenous contrast. This CT exam was performed using one or more of the following dose reduction techniques: automated exposure control, adjustment of the mA and/or kV according to patient size, and/or use of iterative reconstruction technique. Coronal and sagittal reformatted images were created and reviewed. COMPARISON: CT - HEAD W/O CONTRAST 03/18/2014 8:14:09 AM FINDINGS: Brain: Mild atrophy. No intracranial hemorrhage. No mass. Calcifications of basal ganglia, deep white matter, cerebellum, stable. Minimal decreased attenuation within periventricular white matter. No edema. Ventricles: No hydrocephalus. Bones/joints: No acute fracture. Soft tissues: Unremarkable. Vasculature: Minimal atherosclerotic disease of intracranial arteries. Sinuses: Near complete opacification of LEFT maxillary sinus. [id number] mucosal thickening/fluid of RIGHT maxillary sinus. [id number]-[id number] mucosal thickening/fluid of sphenoid sinuses. Mild mucosal thickening/fluid of frontal sinuses. Moderate to extensive mucosal thickening/opacification of ethmoid sinuses. Mastoid air cells: Partial opacification of LEFT mastoid. Orbits: Unremarkable as visualized. IMPRESSION: 1. No intracranial hemorrhage. 2. Nonspecific white matter changes. 3. Sinus disease. 4. Mastoid disease. 5. Incidental/non-acute findings are described above. Dictated By: Franco Daigle MD Dictated Date/Time: 08/21/1625 Signed By: Franco Daigle MD Date Signed: 25 Transcribed By: SHANTELL Transcribe Date/Time : 08/21/1625 [id number] Accession No. : [id number] Patient Name / ID : KENYON SCHMIDT / [id number] Exam Date : 08/20/2016 21:36:38 ( Approved ) Study Comment : Sex / Age : F / 75Y Creator : Mamie Armstrong Dictator : Mamie Armstrong Administrative Associate : Interior Design Director : Mamie Armstrong Approver2 : Report Date : 08/21/2016 10:19:47 My Comment : HISTORY: cough COMPARISON: Comparison is made to the previous study dated 03/03/2015 TECHNIQUE: Chest PA and lateral FINDINGS: LUNGS: Interval appearance of focal hazy opacity at the midportion of the right lung since the previous exam. Interval worsening of patchy opacities at the peripheral right upper lobe since the previous study. PLEURA: No significant pleural effusion identified. No pneumothorax apparent. CARDIOVASCULAR: Normal. OSSEOUS STRUCTURES: Diffuse osteopenia seen. VISUALIZED UPPER ABDOMEN: Normal. OTHER FINDINGS: None. IMPRESSION: Interval appearance of new opacities at the right mid and upper lung since the previous exam.Accession No. : [id number] Patient Name / ID : KENYON SCHMIDT / [id number] Exam Date : 08/21/2016 00:20:28 ( Approved ) Study Comment : Sex / Age : F / 75Y Creator : Franco Daigle MD Dictator : Administrative Associate : Interior Design Director : Franco Daigle MD Approver2 : Report Date : 08/21/2016 00:53:00 My Comment : [facility] Division of Radiology [address] [place] [address] Tel. no. Patient Name: BRAYAN PRESCOTT Pt. Address: [address] [place] [address]. Rec #: [id number] [place] [address]: Arsen ÁLVAREZ, Marcelo Avalos Pt HOME Order Location: CLAUDIO : 1940 Female Age: 75 Order #: [id number] Reason for exam: fall, abd pain CT Scan ABD PELVIS PO CONTRAST ONLY Exam Date: 08/21/16 This imaging exam was performed at [facility] EXAM: CT Abdomen and Pelvis With Intravenous Contrast. CLINICAL HISTORY: 75 years old, female; Pain; Abdominal pain; Flank; Right; Additional info: Fall, abd pain TECHNIQUE: Axial computed tomography images of the abdomen and pelvis with intravenous contrast. This CT exam was performed using one or more of the following dose reduction techniques: automated exposure control, adjustment of the mA and/or kV according to patient size, and/or use of iterative reconstruction technique. Coronal and sagittal reformatted images were created and reviewed. COMPARISON: No relevant prior studies available. FINDINGS: Limitations: Lack of intravenous contrast. Motion artifact - mild. Lower thorax: Minimal atelectasis. Mild patchy and confluent airspace opacities RIGHT middle, LEFT lower lobes. ABDOMEN: Liver: Unremarkable. No mass. Gallbladder and bile ducts: Calcified gallstones. No ductal dilation. Pancreas: No ductal dilation. No mass. Spleen: No splenomegaly. Adrenals: No mass. Kidneys and ureters: No renal calculi. Stomach and bowel: No definite mural thickening. No obstruction. Appendix: No findings to suggest acute appendicitis. PELVIS: Bladder: Unremarkable. Reproductive: Unremarkable as visualized. ABDOMEN and PELVIS: Intraperitoneal space: No significant fluid collection. No free air. Bones/joints: Acute angulation anterior cortex distal sacrum. Soft tissues: Unremarkable. Vasculature: Unremarkable. No abdominal aortic aneurysm. Lymph nodes: No pathologically enlarged lymph nodes. IMPRESSION: 1. Probable multifocal pneumonia. Followup to resolution to exclude underlying pathology. 2. Suspect sacral fracture. Correlate clinically for pain in region. 3. Cholelithiasis. 4. Incidental/non-acute findings are described above. Assessment & Plan (1) CAP (community acquired pneumonia) Status: Acute Priority: High (2) Sinusitis, acute Status: Acute (3) Mastoiditis Status: Acute - Assessment and Plan (Free Text) Assessment: A/P- 75 y/o female with crest syndrome admitted post fall and on imaging found to have CAP, sinusitis and mastoidits. Pt. seems to be doing clinically much better based on her lab results . [place]ocyto[place] much [place] [id number] to [id number]. afebrile blood cx- neg x 2 plan- advise to continue with current abx regimen of IV levaquin which would treat both CAP and the mastoiditis/sinusitis. would also advise to add vanco to the regimen for now . no objection to continuing with otic cipro drops as well. would need ENT evaluation of the mastoiditis, may need cx from the auditory canal by ENT. monitor wbc . All above d/w patient and the hospitalist. Thank you for allowing met o take part in the care oft his patient.
--- NOTE | 2016-08-23 16:55 | CP.PCM.PN ---
Subjective - Date & Time of Evaluation Date of Evaluation: 08/23/16 Time of Evaluation: 13:15 - Subjective Subjective: Hospitalist Progress Note (Patient was seen and examined at 1:15 PM 08/23/16 in Room 662-2) 75 year old female who was admitted on 08/21/16 a few days after a fall in the bathtub (NO LOC) and for complaints of cough/congestion. CT Abdomen Pelvis with suspected Sacral Fx. CT Head 08/20/16 with mild to moderate to severe opacification of the sinuses and left mastoid partial opacification. Chest X Ray wtih new opacities in the right mid/upper lung. She was started on Levaquin for the Right Pneumonia, Sinusitis, and Left Mastoiditis. Consults with ID Dr. Dawson and ENT Dr. Fernandez were requested for further recommendations. Currently upon FULL ROS NO chest pain, NO palpitations, (+) Cough that comes and goes nonproductive, NO SOB/Wheezing, NO dysphagia/odynophagia, NO abdominal pain, NO n/v/d/c (did not eat her lunch much as she did not like what was brought for her), NO burning/pain with urination, NO headache, NO burning/pain with urination, NO new changes in vision/eye pain, NO current pain in the left ear, NO edema HEENT: NCA, EOMI, PERRLA, Pharynx is without erythema/exudate, Oral Mucosa and Nasal Turbinates are moist, NO cervical/periauricular lymphadenopathy, NO thyromegaly Cardio: NS1 and NS2, NO M/R/G Respiratory: Bilateral Basilar Inspiratory Rales GI: BS x 4, Soft, NT, ND, NO hepatomegaly/splenomegaly, NO guarding/rebound tenderness Ext: NO edema, Pulses are strong and equal, Capillary Refill is 2 seconds Neuro: CN II through XII are grossly intact Assessment and Plan: 1). S/P Fall PT Hx Chronic Left Foot Drop: family to bring in brace Avoiding narcotics as low blood pressure 2). Right Lung Pneumonia Levaquin 750 mg IV 1x/day 3). Left Otitis/Mastoiditis and Sinusitis Levaquin 750 mg IV 1x/day Vancomycin 1 gm IV 1x/day Cipro Otic 4 drops to Left Ear 4x/day ID Dr. Dawson and ENT Dr. Fernandez for obtaining possible culture from Left Ear and further recommendations: Length of Antibiotic? 4). Hx Hyponatremia/Non-Anion Gap Acidosis Resolved 5). Hypokalemia Kdur 40 mEQ PO x 1 dose 08/23/16 F/U Mag, Phos, BMP 08/24/16 6). Hx Anemia Monitor HgB/Hct which is stable 7). Hx of Hearing Loss S/P Tx for Sepsis 1 year ago Will need outpatient Audiogram 8). Hx [place] Lumigan 1 drop bilateral eyes Olopatadine 0.1% 1 drop bilateral eyes 9). Hx CREST/Raynaud's Pentoxil 400 mg PO TID 10). Prophylaxis Zofran 4 mg IV Q6H PRN N/V Tramadol 50mg PO Q4H PRN Severe Pain Tylenol 650 mg PO Q6H PRN Mild Pain Tylenol 650 mg PO Q6H PRN Fever Duoneb Q6H PRN SOB Lovenox 40 mg SQ 1x/day Protonix 40 mg PO 1x/day Florastor 250 mg PO 2x/day Ensure PO 3x/day Rhett Garcia D.O. Objective - Vital Signs/Intake and Output Vital Signs (last 24 hours): Temp Pulse Resp BP Pulse Ox 98.5 F 89 18 117/66 99 08/23/16 16:10 08/23/16 16:10 08/23/16 16:10 08/23/16 16:10 08/23/16 16:10 Intake and Output: 08/23/16 08/23/16 06:59 18:59 Intake Total 415 Balance 415 - Medications Medications: Current Medications Acetaminophen (Tylenol 325mg Tab) 650 mg PO Q6 PRN PRN Reason: Pain, Mild (1-3) Last Admin: 08/21/16 15:22 Dose: 650 mg Acetaminophen (Tylenol 325mg Tab) 650 mg PO Q6 PRN PRN Reason: Fever >100.4 F Albuterol/Ipratropium (Duoneb 3 Mg/0.5 Mg (3 Ml) Ud) 3 ml INH RQ6 PRN PRN Reason: Shortness of Breath Ciprofloxacin/Dexamethasone (Ciprodex Otic) 4 drop AD BID [facility] Last Admin: 08/23/16 16:46 Dose: 4 drop Enoxaparin Sodium (Lovenox) 40 mg SC DAILY [facility] PRN Reason: Protocol Last Admin: 08/23/16 09:11 Dose: 40 mg Home Med (Patient's Own Medication) 1 unit OU DAILY [facility] Last Admin: 08/23/16 09:11 Dose: 1 unit Levofloxacin/Dextrose (Levaquin 750mg) 150 mls @ 100 mls/hr IVPB DAILY [facility] Last Admin: 08/23/16 09:12 Dose: 100 mls/hr Vancomycin HCl 1 gm/ Sodium (Chloride) 250 mls @ 166.667 mls/hr IVPB DAILY [facility] Olopatadine HCl (Patanol 0.1% Opht Soln) 1 drop OU DAILY [facility] Last Admin: 08/23/16 09:12 Dose: 1 drop Ondansetron HCl (Zofran Inj) 4 mg IVP Q6 PRN PRN Reason: Nausea/Vomiting Last Admin: 08/21/16 13:20 Dose: 4 mg Pentoxifylline (Pentoxil) 400 mg PO TID [facility] Last Admin: 08/23/16 16:49 Dose: 400 mg Tramadol HCl (Ultram) 50 mg PO Q4 PRN PRN Reason: Pain, severe (8-10) - Labs Labs: 08/23/16 05:55 08/23/16 05:55 PT 12.6 SECONDS (9.6-11.2) H 08/21/16 01:55 INR 1.21 (0.92-1.08) H 08/21/16 01:55 APTT SECONDS (23.3-32.5) 08/21/16 01:55
--- NOTE | 2016-08-23 21:16 | CP.PCM.PN ---
Subjective - Date & Time of Evaluation Date of Evaluation: 08/23/16 Time of Evaluation: 21:14 - Subjective Subjective: see below Objective - Vital Signs/Intake and Output Vital Signs (last 24 hours): Temp Pulse Resp BP Pulse Ox 98.5 F 89 18 117/66 99 08/23/16 16:10 08/23/16 16:10 08/23/16 16:10 08/23/16 16:10 08/23/16 16:10 Intake and Output: 08/23/16 08/24/16 18:59 06:59 Intake Total 815 Balance 815 - Medications Medications: Current Medications Acetaminophen (Tylenol 325mg Tab) 650 mg PO Q6 PRN PRN Reason: Pain, Mild (1-3) Last Admin: 08/21/16 15:22 Dose: 650 mg Acetaminophen (Tylenol 325mg Tab) 650 mg PO Q6 PRN PRN Reason: Fever >100.4 F Albuterol/Ipratropium (Duoneb 3 Mg/0.5 Mg (3 Ml) Ud) 3 ml INH RQ6 PRN PRN Reason: Shortness of Breath Ciprofloxacin/Dexamethasone (Ciprodex Otic) 4 drop AD BID ON LICENSE OF [facility] Last Admin: 08/23/16 16:46 Dose: 4 drop Enoxaparin Sodium (Lovenox) 40 mg SC DAILY ARNAUD PRN Reason: Protocol Last Admin: 08/23/16 09:11 Dose: 40 mg Home Med (Patient's Own Medication) 1 unit OU DAILY ON LICENSE OF [facility] Last Admin: 08/23/16 09:11 Dose: 1 unit Levofloxacin/Dextrose (Levaquin 750mg) 150 mls @ 100 mls/hr IVPB DAILY ON LICENSE OF [facility] Last Admin: 08/23/16 09:12 Dose: 100 mls/hr Vancomycin HCl 1 gm/ Sodium (Chloride) 250 mls @ 166.667 mls/hr IVPB DAILY ON LICENSE OF [facility] Last Admin: 08/23/16 16:57 Dose: 166.667 mls/hr Olopatadine HCl (Patanol 0.1% Opht Soln) 1 drop OU DAILY ON LICENSE OF [facility] Last Admin: 08/23/16 09:12 Dose: 1 drop Ondansetron HCl (Zofran Inj) 4 mg IVP Q6 PRN PRN Reason: Nausea/Vomiting Last Admin: 08/21/16 13:20 Dose: 4 mg Pantoprazole Sodium (Protonix Ec Tab) 40 mg PO DAILY ARNAUD Pentoxifylline (Pentoxil) 400 mg PO TID ON LICENSE OF [facility] Last Admin: 08/23/16 16:49 Dose: 400 mg Saccharomyces Boulardii (Florastor) 250 mg PO BID ARNAUD Tramadol HCl (Ultram) 50 mg PO Q4 PRN PRN Reason: Pain, moderate (4-7) Tramadol HCl (Ultram) 100 mg PO Q4 PRN PRN Reason: Pain, severe (8-10) - Labs Labs: 08/23/16 05:55 08/23/16 05:55 PT 12.6 SECONDS (9.6-11.2) H 08/21/16 01:55 INR 1.21 (0.92-1.08) H 08/21/16 01:55 APTT SECONDS (23.3-32.5) 08/21/16 01:55 Assessment and Plan - Assessment and Plan (Free Text) Assessment: History of Present Illness 75 y/o female admitted 3 days ago with URI symptoms including cough, headache and left ear pain with drainage of several days duration. CT read as left "mastoiditis." Cllinically patient is much better since being started on Levaquin and Ciprodex ear drops. No further ear pain. Headaches resolved. She has hearing loss of long duration. Her daughter was present at bedside today. Past Medical Hx CREST syndrome [place] Social Hx non-contributory Family Hx non-contributory Review of Systems see HPI Exam awake, alert, comfortable oc/op clear, no palate asymmetry or swelling face symmetric, non facial/sinus tenderness right EAC and TM clear left EAC and TM clear; no active infection; no mastoid swelling or tenderness nose clear; inferior turbinates 2+; dry mucus membranes eomi CT shows patchy left mastoid opacification; no evidence of acute mastoiditis Impression left acute otitis media with rupture vs. acute otitis externa, improving on systemic and topical abx; no evidence of acute mastoiditis on exam or imaging Recommend as patient has done well with Levaquin, i would complete 14 day course of this medication continue Ciprodex ear drops for total duration of 7 days Afrin x3 days o/p follow-up d/w patient and daughter, who was at bedside
[2016-08-23] MEDS: Saccharomyces Boulardi 250 mg Cap PO SCH (21:18)
[2016-08-24 00:16] VITALS: RESP 20
[2016-08-24 07:13] LABS: BASO # 0.1 K/uL (0.0-0.2); BASO % 0.7 % (0.0-2.0); EOS # 0.1 K/uL (0.0-0.7); EOS % 0.5 % (0.0-4.0); HEMATOCRIT 29.7 % (34.0-47.0); LYMPH # 2.5 K/uL (1.0-4.3); LYMPH % 23.1 % (20.0-40.0); MEAN CELL VOLUME 93.3 fl (81.0-99.0); MEAN CORPUSCULAR HGB CONC 34.3 g/dL (33.0-37.0); MONO # 1.2 K/uL (0.0-0.8); MONO % 11.1 % (0.0-10.0); NEUT # 7.1 K/uL (1.8-7.0); NEUT % 64.6 % (50.0-75.0); NRBC % 0.1 % (0.0-0.0); RED CELL DISTRIBUTION WIDTH 13.1 % (11.5-14.5); WHITE BLOOD COUNT 10.9 K/uL (4.8-10.8)
[2016-08-24 07:17] LABS: ALB/GLOB RATIO 0.7 (1.0-2.1); ALKALINE PHOSPHATASE 652 U/L (38-126); ALT/SGPT 46 U/L (9-52); AST/SGOT 68 U/L (14-36); BILIRUBIN,TOTAL 2.7 mg/dl (0.2-1.3); BLOOD UREA NITROGEN 13 mg/dl (7-17); CALCIUM 8.6 mg/dL (8.4-10.2); CARBON DIOXIDE 24 mmol/L (22-30); CHLORIDE 103 mmol/L (98-107); GFR AFRICAN-AMERICAN > 60; GLUCOSE,RANDOM 87 mg/dL (65-105); MAGNESIUM 1.9 MG/DL (1.6-2.3); POTASSIUM 3.3 MMOL/L (3.6-5.0); SODIUM 133 mmol/l (132-148); TOTAL PROTEIN 6.3 G/DL (6.3-8.2)
[2016-08-24] MEDS ORDERED: Potassium Chloride 20 mEq/15 ml LIQ UD PO ONE (07:43)
[2016-08-24 08:08] VITALS: BP 107/60; PULSE 55; TEMP 98.9; O2SAT 98
--- NOTE | 2016-08-24 08:53 | CP.PCM.PN ---
Subjective - Date & Time of Evaluation Date of Evaluation: 08/24/16 Time of Evaluation: 13:00 - Subjective Subjective: ID Note- Pt. seen and examined today. Pt. states she feels much better, She denies any fever or chills. sattes her left ear pain is pretty much resolved, denies any AMADOR, denies any sob. Pt. was seen by ENT. per pt. to be d/c home today. Objective - Vital Signs/Intake and Output Vital Signs (last 24 hours): Temp Pulse Resp BP Pulse Ox 98.9 F 55 L 20 107/60 98 08/24/16 08:07 08/24/16 08:07 08/24/16 08:07 08/24/16 08:07 08/24/16 08:07 - Medications Medications: Current Medications Acetaminophen (Tylenol 325mg Tab) 650 mg PO Q6 PRN PRN Reason: Pain, Mild (1-3) Last Admin: 08/21/16 15:22 Dose: 650 mg Acetaminophen (Tylenol 325mg Tab) 650 mg PO Q6 PRN PRN Reason: Fever >100.4 F Albuterol/Ipratropium (Duoneb 3 Mg/0.5 Mg (3 Ml) Ud) 3 ml INH RQ6 PRN PRN Reason: Shortness of Breath Ciprofloxacin/Dexamethasone (Ciprodex Otic) 4 drop AD BID ARNAUD Last Admin: 08/23/16 16:46 Dose: 4 drop Enoxaparin Sodium (Lovenox) 40 mg SC DAILY ARNAUD PRN Reason: Protocol Last Admin: 08/23/16 09:11 Dose: 40 mg Home Med (Patient's Own Medication) 1 unit OU DAILY ARNAUD Last Admin: 08/23/16 09:11 Dose: 1 unit Levofloxacin/Dextrose (Levaquin 750mg) 150 mls @ 100 mls/hr IVPB DAILY ARNAUD Last Admin: 08/23/16 09:12 Dose: 100 mls/hr Vancomycin HCl 1 gm/ Sodium (Chloride) 250 mls @ 166.667 mls/hr IVPB DAILY ARNAUD Last Admin: 08/23/16 16:57 Dose: 166.667 mls/hr Olopatadine HCl (Patanol 0.1% Opht Soln) 1 drop OU DAILY ARNAUD Last Admin: 08/23/16 09:12 Dose: 1 drop Ondansetron HCl (Zofran Inj) 4 mg IVP Q6 PRN PRN Reason: Nausea/Vomiting Last Admin: 08/21/16 13:20 Dose: 4 mg Oxymetazoline HCl (Nasal Decongestant 15 Ml) 2 spr NS Q12 [facility] Stop: 08/26/16 21:16 Last Admin: 08/23/16 21:56 Dose: 2 spr Pantoprazole Sodium (Protonix Ec Tab) 40 mg PO DAILY [facility] Pentoxifylline (Pentoxil) 400 mg PO TID [facility] Last Admin: 08/23/16 16:49 Dose: 400 mg Saccharomyces Boulardii (Florastor) 250 mg PO BID [facility] Last Admin: 08/23/16 21:18 Dose: 250 mg Tramadol HCl (Ultram) 50 mg PO Q4 PRN PRN Reason: Pain, moderate (4-7) Tramadol HCl (Ultram) 100 mg PO Q4 PRN PRN Reason: Pain, severe (8-10) Last Admin: 08/23/16 21:18 Dose: 100 mg - Labs Labs: - Additional Findings Additional findings: - Constitutional Appears: Non-toxic, No Acute Distress - Head Exam Head Exam: ATRAUMATIC - Eye Exam Eye Exam: EOMI, PERRL - ENT Exam ENT Exam: Normal Oropharynx Additional comments: no tenderness around the ears, no discharge from the ears, clear - Neck Exam Neck exam: Positive for: Full Rom - Respiratory Exam Respiratory Exam: NORMAL BREATHING PATTERN Additional comments: good aeration b/l today - Cardiovascular Exam Cardiovascular Exam: RRR, +S1, +S2 - GI/Abdominal Exam GI & Abdominal Exam: Normal Bowel Sounds, Soft Additional comments: NT, ND - Extremities Exam Additional comments: no edema B/L LE - Neurological Exam Neurological exam: Alert, Oriented x 3 Laboratory Results - last 72 hr 08/22/16 08/23/16 08/24/16 06:15 05:55 06:05 WBC 13.3 H 14.2 H 10.9 H RBC 3.40 L 3.45 L 3.18 L Hgb 10.9 L 10.8 L 10.2 L Hct 32.0 L 32.0 L 29.7 L MCV 94.1 92.7 93.3 MCH 31.9 H 31.3 H 32.0 H MCHC 34.0 33.7 34.3 RDW 13.3 13.0 13.1 Plt Count 169 248 210 MPV 8.9 9.0 Neut % (Auto) 77.0 H 64.6 Lymph % (Auto) 13.6 L 23.1 [place] % (Auto) 9.0 11.1 H Eos % (Auto) 0.1 0.5 Baso % (Auto) 0.3 0.7 Neut # 10.9 H 7.1 H Lymph # 1.9 2.5 [place] # 1.3 H 1.2 H Eos # 0.0 0.1 Baso # 0.0 0.1 Sodium 141 138 133 Potassium 3.8 3.3 L 3.3 L Chloride 107 105 103 Carbon Dioxide 20 L 22 24 Anion Gap 18 14 9 L BUN 19 H 12 13 Creatinine 0.8 0.6 L 0.5 L Est GFR ( Amer) > 60 > 60 > 60 Est GFR (Non-Af Amer) > 60 > 60 > 60 Random Glucose 86 91 87 Calcium 8.7 8.7 8.6 Phosphorus 3.0 Magnesium 1.9 Total Bilirubin 2.7 H AST 68 H ALT 46 Alkaline Phosphatase 652 H Total Protein 6.3 Albumin 2.6 L Globulin 3.7 Albumin/Globulin Ratio 0.7 L Microbiology 08/20/16 22:00 Blood-Venous Blood Culture - Preliminary NO GROWTH AFTER 3 DAYS 08/20/16 21:40 Blood-Venous Blood Culture - Preliminary NO GROWTH AFTER 3 DAYS Assessment and Plan (1) CAP (community acquired pneumonia) Status: Acute (2) Sinusitis, acute Status: Acute (3) Mastoiditis Status: Acute - Assessment and Plan (Free Text) Assessment: A/P- 75 y/o female with crest syndrome admitted post fall and on imaging found to have CAP, sinusitis and ? mastoidits. pt. clinically much improved. her leukocytois has resolved. afebrile blood cx- neg x 2 as per ENT no acute mastoiditis and most likely otitis externa and to continue with cipro otic drops and oral levaquin. plan- advise to complete total of 14 days of levaquin for this otitis externa vs ?? mastoiditis since she has responded very well tot his regimen. has already completed 4 days of this abx so need another 10 days of levaquin orally. continue with otic cipro drops as per ENT as well. d/c vancomycin. Pt. to have f/u with ENT as outpatient, may need repeat CT as outpatient. Pt. to also be f/u by her PCP as outpatient next week and to have repeat CXR as outpatient. All above d/w patient and the hospitalist .
[2016-08-24] MEDS ORDERED: Pantoprazole 40 mg EC Tab PO SCH (09:00)
[2016-08-24] MEDS: Ciprofloxacin/Dexamethasone OTIC SUSP AD SCH (09:11)
[2016-08-24] MEDS: Saccharomyces Boulardi 250 mg Cap PO SCH (09:11)
[2016-08-24] MEDS: Enoxaparin 40 mg Syringe SC SCH (09:12)
[2016-08-24] MEDS: Olopatadine 0.1% Opht SOLN OU SCH (09:13)
[2016-08-24] MEDS ORDERED: Lidocaine 5% Patch TD SCH (13:00)
--- NOTE | 2016-08-24 19:34 | CP.PCM.DIS ---
Provider - Provider Date of Admission: 08/21/16 02:17 Attending physician: Rossana Gibbs MD Primary care physician: Dr. Augustin Consults: ENT consult ID consult PT consult Time Spent in preparation of Discharge (in minutes): 30 Hospital Course - Lab Results Lab Results: Most Recent Lab Values WBC 10.9 K/uL (4.8-10.8) H 08/24/16 06:05 RBC 3.18 Mil/uL (3.80-5.20) L 08/24/16 06:05 Hgb 10.2 g/dL (12.0-16.0) L 08/24/16 06:05 Hct 29.7 % (34.0-47.0) L 08/24/16 06:05 MCV 93.3 fl (81.0-99.0) 08/24/16 06:05 MCH 32.0 pg (27.0-31.0) H 08/24/16 06:05 MCHC 34.3 g/dL (33.0-37.0) 08/24/16 06:05 RDW 13.1 % (11.5-14.5) 08/24/16 06:05 Plt Count 210 K/uL (130-400) 08/24/16 06:05 MPV 9.0 fl (7.2-11.7) 08/24/16 06:05 Neut % (Auto) 64.6 % (50.0-75.0) 08/24/16 06:05 Lymph % (Auto) 23.1 % (20.0-40.0) 08/24/16 06:05 [place] % (Auto) 11.1 % (0.0-10.0) H 08/24/16 06:05 Eos % (Auto) 0.5 % (0.0-4.0) 08/24/16 06:05 Baso % (Auto) 0.7 % (0.0-2.0) 08/24/16 06:05 Neut # 7.1 K/uL (1.8-7.0) H 08/24/16 06:05 Lymph # 2.5 K/uL (1.0-4.3) 08/24/16 06:05 [place] # 1.2 K/uL (0.0-0.8) H 08/24/16 06:05 Eos # 0.1 K/uL (0.0-0.7) 08/24/16 06:05 Baso # 0.1 K/uL (0.0-0.2) 08/24/16 06:05 Neutrophils % (Manual) 75 % (42-75) 08/21/16 05:30 Band Neutrophils % 5 % (0-2) H 08/21/16 05:30 Lymphocytes % (Manual) 9 % (20-50) L 08/21/16 05:30 Reactive Lymphs % 4 % (0-0) H 08/21/16 05:30 Monocytes % (Manual) 6 % (0-10) 08/21/16 05:30 Basophils % (Manual) 1 % (0-2) 08/21/16 05:30 Toxic Granulation Present 08/21/16 05:30 Platelet Estimate Normal (NORMAL) 08/21/16 05:30 Hypochromasia (manual) Slight 08/21/16 05:30 PT 12.6 SECONDS (9.6-11.2) H 08/21/16 01:55 INR 1.21 (0.92-1.08) H 08/21/16 01:55 APTT SECONDS (23.3-32.5) 08/21/16 01:55 pCO2 27 mm/Hg (35-45) L 08/21/16 01:42 pO2 86 mm/Hg (80-100) 08/21/16 01:42 HCO3 23.8 mmol/L (21-28) 08/21/16 01:42 ABG pH 7.49 (7.35-7.45) H 08/21/16 01:42 ABG Total CO2 21.4 mmol/L (22-28) L 08/21/16 01:42 ABG O2 Saturation 99.3 % (95-98) H 08/21/16 01:42 ABG Base Excess -1.4 mmol/L (-2.0-3.0) 08/21/16 01:42 Britton Test Yes 08/21/16 01:42 ABG Potassium 3.2 mmol/L (3.6-5.2) L 08/21/16 01:42 VBG pH 7.06 (7.32-7.43) L* 08/20/16 23:55 VBG pCO2 62 mmHg (40-60) H 08/20/16 23:55 VBG HCO3 13.6 mmol/L 08/20/16 23:55 VBG Total CO2 19.5 mmol/L (22-28) L 08/20/16 23:55 VBG O2 Sat (Calc) 72.0 % (40-65) H 08/20/16 23:55 VBG Base Excess -13.3 mmol/L (0.0-2.0) L 08/20/16 23:55 A-a O2 Difference 30.0 mm/Hg 08/21/16 01:42 Sodium 127.0 mmol/L (132-148) L 08/21/16 01:42 Chloride 101.0 mmol/L (98-107) 08/21/16 01:42 Glucose 107 mg/dL (65-105) H 08/21/16 01:42 Lactate 0.9 mmol/L (0.7-2.1) 08/21/16 01:42 Vent Mode Room air 08/21/16 01:42 FiO2 21.0 % 08/21/16 01:42 Crit Value Called To rosio Leger 08/20/16 23:55 Crit Value Called By Sb 08/20/16 23:55 Crit Value Read Back Y 08/20/16 23:55 Blood Gas Notified Time 7 08/20/16 23:55 Sodium 133 mmol/l (132-148) 08/24/16 06:05 Potassium 3.3 MMOL/L (3.6-5.0) L 08/24/16 06:05 Chloride 103 mmol/L (98-107) 08/24/16 06:05 Carbon Dioxide 24 mmol/L (22-30) 08/24/16 06:05 Anion Gap 9 (10-20) L 08/24/16 06:05 BUN 13 mg/dl (7-17) 08/24/16 06:05 Creatinine 0.5 mg/dL (0.7-1.2) L 08/24/16 06:05 Est GFR ( Amer) > 60 08/24/16 06:05 Est GFR (Non-Af Amer) > 60 08/24/16 06:05 Random Glucose 87 mg/dL (65-105) 08/24/16 06:05 Calcium 8.6 mg/dL (8.4-10.2) 08/24/16 06:05 Phosphorus 3.0 mg/dl (2.5-4.5) 08/24/16 06:05 Magnesium 1.9 MG/DL (1.6-2.3) 08/24/16 06:05 Total Bilirubin 2.7 mg/dl (0.2-1.3) H 08/24/16 06:05 AST 68 U/L (14-36) H 08/24/16 06:05 ALT 46 U/L (9-52) 08/24/16 06:05 Alkaline Phosphatase 652 U/L (38-126) H 08/24/16 06:05 Total Protein 6.3 G/DL (6.3-8.2) 08/24/16 06:05 Albumin 2.6 g/dL (3.5-5.0) L 08/24/16 06:05 Globulin 3.7 gm/dL (2.2-3.9) 08/24/16 06:05 Albumin/Globulin Ratio 0.7 (1.0-2.1) L 08/24/16 06:05 Arterial Blood Potassium 3.2 mmol/L (3.6-5.2) L 08/21/16 01:42 Influenza Typ A,B (EIA) Negative for flu a/b (NEGATIVE) 08/20/16 21:33 Blood Type A POSITIVE 08/20/16 00:24 Antibody Screen Negative 08/20/16 00:24 BBK History Checked Patient has bt 08/20/16 00:24 - Hospital Course Hospital Course: 75 y/o female with CREST syndrome/Reynauds, HTN, cholelithiasis and left foot drop came in for evaluation after a fall several days ago in the bathtub after slipping on soap. She has been feeling pain on her R flank . She did not hit her head or have LOC. She also noted some respiratory symptoms and fatigue, nasal congestion ,cough for several days that got worse over past 2 days. Denies f/c/n/v/d. Patient also was complaining of pain over left ear and yellowish drainage was noted .CT head showed no acute fracture No intracranial hemorrhage, Nonspecific white matter changes. , Sinus disease. , Mastoid disease. CXR showed multifocal pneumonia CT pelvis showed suspected sacral fracture patient was admitted with diagnosis of CAP acute sinusitis and otitis . sShe was started on Levaquine IV and Ciprodex ear drops. ID and ENt were consulted Vancomycin was added to her antibiotic regiment . As per ENT patient does not have mastoiditis , but most likely sinusitis and otitis. Patoient clinically improved . her WBC count significantly dropped from 28 k -- 10.9K , cultures were with no growth. After discussion with consultants decided to discharge patient home on PO lavaquine for toatl 14 day s9 10 more days 0 Ciprodex ear drops and Afrin Will discharge patient with family. All questions answered . 1. Fall complaining of right flank pain Ct pelvis showed suspected sacral fracture. Given her clinical presentation sacral fracture is unlikely .No tenderness to sacral area with palpation, no hematoma or pain with movement Ct head showed no acute pathology Started physical therapy with full weight bearing to LE. patient uses brace to LLE for chronic left foot drop referred for home PT and visiting nurse Started lidoderm poatch to right flan , Ultram PRN 2.CAP (community acquired pneumonia) CXR showed multifocal pneumonia to the right hemithorax ( patient has history of interstitial lung disease) WBC elevated to 28k now down to 10.9 K Continue Levaquin IV 3. Acute Sinusitis/Otitis - unlikely mastoiditi s pt complained of left ear pain and hearing loss Yellowish discharge noticed on admission Ct heda sjhowed sinus disease started Cipro otic ear drops and levaquine IV with improvemnet ID and ENt consulted continue Levaquine for total 14 days, Ciprodex ear dropps for 7 day sand afrin for sinuses patient to follow up with Dr. Barnes as out patient 4.Hyponatremia/non anion gap metabolic acidosis, improving Most likely secondary to volume depletion resolved 5. Hearing loss As per daughter patient developed hearing loss after was treated with antibiotics for sepsis years ago Worsening hearing loss most likely related to age and otitis will need evaluation with audiogram and ENT as out patient 6. Mild anemia Most likely dilutional 7. Glaucoma resumed eye drops 8.Interstitial lung disease/ Crest syndrome on Pentoxyfilline 9 DVT prophylaxis lovenox while in patient 10. Hypokalemia due to poor po intake resolved Discharge Exam - Head Exam Head Exam: ATRAUMATIC, NORMOCEPHALIC - Eye Exam Eye Exam: PERRL Pupil Exam: PERRL - ENT Exam ENT Exam: Mucous Membranes Moist, Normal Exam Additional comments: hard on hearing - Neck Exam Neck exam: Full Rom - Respiratory Exam Respiratory Exam: Clear to PA & Lateral, NORMAL BREATHING PATTERN. absent: Rhonchi, Wheezes, Respiratory Distress - Cardiovascular Exam Cardiovascular Exam: REGULAR RHYTHM. absent: JVD - GI/Abdominal Exam GI & Abdominal Exam: Normal Bowel Sounds, Soft. absent: Distended, Guarding, Rebound, Tenderness - Rectal Exam Rectal Exam: Deferred - Extremities Exam Extremities exam: normal inspection Additional comments: left foot drop - Back Exam Back exam: NORMAL INSPECTION - Neurological Exam Neurological exam: Alert, CN II-XII Intact, Oriented x3 - Psychiatric Exam Psychiatric exam: Normal Affect, Normal Mood - Skin Skin Exam: Dry, Normal Color, Warm Discharge Plan - Discharge Medications Prescriptions: Oxymetazoline 0.05% [Afrin 0.05%] 30 spr NS Q12H #1 bottle Ciprofloxacin/Dexamethasone [Ciprodex Otic] 75 drop AU BID #1 bottle levoFLOXacin [Levaquin] 750 mg PO DAILY #10 tab Lidocaine 5% [Lidoderm] 1 ea TD DAILY #5 patch Famotidine [Pepcid] 20 mg PO BID #60 tab Rosuvastatin Calcium 5 mg PO DAILY #30 tablet traMADol [Ultram] 50 mg PO TID PRN #20 tab PRN Reason: Pain, Moderate (4-7) - Follow Up Plan Condition: STABLE Disposition: HOME/ ROUTINE Patient education suggested?: Yes Instructions: Viral Pneumonia (DC), Otitis Media (DC) Referrals: Alfonso aBrnes MD [Medical Doctor] - Cj Augustin MD [Family Provider] -
--- NOTE | 2016-08-27 17:17 | CARD ---
APPROVED REPORT EKG Measurement Heart [id number] <Conclusion> Normal sinus rhythm Possible Left atrial enlargement Borderline ECG
== END 2016-08-24 16:05 | disposition home or self-care (01) | DRG 194 ==
LOC: H.ER 20:37 → H.EROBSV 21:19 → OBSVTOIN 08-21 02:17 → H.MEDSURG1 08-21 03:42
PROVIDERS: ADMIT Internal Medicine; ATTEND Internal Medicine
DX: J18.9 Pneumonia, unspecified organism (principal); J84.9 Interstitial pulmonary disease, unspecified; E87.2 Acidosis; I50.9 Heart failure, unspecified; M34.1 CR(E)ST syndrome; E87.1 Hypo-osmolality and hyponatremia; E86.9 Volume depletion, unspecified; J01.90 Acute sinusitis, unspecified; D64.89 Other specified anemias; H40.9 Unspecified glaucoma; E87.6 Hypokalemia; E78.5 Hyperlipidemia, unspecified; M21.372 Foot drop, left foot; I10 Essential (primary) hypertension; E78.00 Pure hypercholesterolemia, unspecified; H91.90 Unspecified hearing loss, unspecified ear; H66.92 Otitis media, unspecified, left ear

== ENCOUNTER 2018-05-26 12:16 | Emergency (ER) | payer MEDICARE, MEDICAID ==
[2018-05-26 12:16] VITALS: BMI 22.8
[2018-05-26] MEDS ORDERED: Oxycodone/Acetaminophen 5/325 mg Tab PO STA (13:02)
[2018-05-26] MEDS ORDERED: Oxycodone/Acetaminophen 5/325 mg Tab ONE (13:20)
--- NOTE | 2018-05-26 13:24 | ED PDOC ---
HPI: Trauma/Fall - HPI Time Seen by Provider: 05/26/18 12:28 Chief Complaint (Nursing): Trauma Chief Complaint (Provider): Left lower extremity problem/injury History Per: Patient, Family (daughter) History/Exam Limitations: no limitations Onset/Duration Of Symptoms: Days (7x) Injury Occurred (Timing): Days Ago: (7x) Location Of Injury: Left: Leg Severity: Moderate Associated Symptoms: denies: LOC ((-) head injury) Additional Complaint(s): 77 year old female with a past medical history scleroderma (subdivision: crest syndrome) presents to the ED for an evaluation of a left lower extremity injury that occurred 7x days ago. As per patient's daughter, as witnessed by her son (age 17), patient was walking around with a cane (usually uses a walker), when her flip flop caught onto the side of their carpet, and she fell. Patient denies head injury, and denies chest pain and dizziness prior to fall. Patient reports that there is no visible injury, but is complaining of left leg pain. Daughter states that patient takes tramadol daily (50-100 mg) for pain. Of note: Patient reports having loose stool for 3x days, but denies having abdominal pain. Patient also complains of an open lesion to the right foot. Patient's daughter has been applying topical cream for 1x month, and lesion was improving, but recently started to worsen again. PMD: Kelly Octavio-Sater - Fall Fall:Prior To Injury: denies: Other (chest pain, dizziness) Past Medical History Reviewed: Historical Data, Nursing Documentation, Vital Signs Vital Signs: Last Vital Signs Temp 99.1 F 05/26/18 12:33 Pulse 88 05/26/18 12:33 Resp 18 05/26/18 12:29 BP 132/71 05/26/18 12:33 Pulse Ox 99 05/26/18 12:33 - Medical History PMH: Anemia, Bronchitis, CHF, Gall Bladder Disease (Cholelithiasis), HTN, H ypercholesterolemia, Pneumonia Denies: Diabetes, HIV, Chronic Kidney Disease Other PMH: scleroderma (crest syndrome) - Family History Family History: States: No Known Family Hx - Living Arrangements Living Arrangements: With Family - Social History Current smoker - smoking cessation education provided: No Alcohol: None Drugs: Denies - Home Medications Home Medications: Ambulatory Orders Medication Instructions Recorded Pentoxifylline [Pentoxil] 400 mg PO TID #0 ter 03/07/15 Tramadol Hydrochloride [Tramadol] 50 mg PO DAILY #0 tab 03/07/15 Ciprofloxacin/Dexamethasone 75 drop AU BID #1 bottle 08/24/16 [Ciprodex Otic] Famotidine [Pepcid] 20 mg PO BID #60 tab 08/24/16 Lidocaine 5% [Lidoderm] 1 ea TD DAILY #5 patch 08/24/16 Oxymetazoline 0.05% [Afrin 0.05%] 30 spr NS Q12H #1 bottle 08/24/16 Rosuvastatin Calcium 5 mg PO DAILY #30 tablet 08/24/16 levoFLOXacin [Levaquin] 750 mg PO DAILY #10 tab 08/24/16 traMADol [Ultram] 50 mg PO TID PRN #20 tab 08/24/16 oxyCODONE/Acetaminophen [Percocet 1 ea PO Q6H PRN #15 tab 05/26/18 5/325 mg Tab] - Allergies Allergies/Adverse Reactions: Allergies Allergy/AdvReac Type Severity Reaction Status Date / Time cefadroxil Allergy RASH Verified 08/20/16 20:40 Review of Systems ROS Statement: Except As Marked, All Systems Reviewed And Found Negative Gastrointestinal: Positive for: Diarrhea (loose stool). Negative for: Abdominal Pain Musculoskeletal: Positive for: Leg Pain (left) Skin: Positive for: Lesions (left ankle) Physical Exam - Reviewed Nursing Documentation Reviewed: Yes Vital Signs Reviewed: Yes - Physical Exam Appears: Positive for: Non-toxic, In Acute Distress (mild painful distress) Head Exam: Positive for: ATRAUMATIC, NORMOCEPHALIC Skin: Positive for: Normal Color, Warm, Dry Eye Exam: Positive for: Normal appearance ENT: Positive for: Normal ENT Inspection Neck: Positive for: Normal Cardiovascular/Chest: Positive for: Regular Rate, Rhythm Respiratory: Positive for: Normal Breath Sounds. Negative for: Accessory Muscle Use, Respiratory Distress Pulses-Dorsalis Pedis (L): 2+ Pulses-Dorsalis Pedis (R): 2+ Gastrointestinal/Abdominal: Positive for: Normal Exam, Soft. Negative for: Tenderness Extremity: Positive for: Normal ROM (good ROM of legs bilaterally), Calf Tenderness (patient complains of), Other (nodules over knuckles bilterally. Left ankle: superficial healing wound without localized erythema.). Negative for: Tenderness ((-) ankle tenderness) Neurologic/Psych: Positive for: Alert, Oriented - Laboratory Results Result Diagrams: 05/26/18 13:20 05/26/18 13:20 - ECG O2 Sat by Pulse Oximetry: 99 (RA) Pulse Ox Interpretation: Normal - Radiology X-Ray: Viewed By Me, Read By Radiologist (see MDM) - CT Scan/US US left lower extremity vein Other Rad Studies (CT/US): Read By Radiologist, Radiology Report Reviewed (see MDM note) Medical Decision Making Medical Decision Makin:28 Initial impression: 77 year old female with left leg pain status post fall. Initial plan: * US duplex lower extrm vein left * EKG * CMP * CBC w/ diff * blood culture * urine culture * urinalysis * percocet 5/325 mg tab 1 tab PO * reevaluation 14:05 US duplex lower extrm vein left read an reviewed by radiologist. IMPRESSION: No sonographic or Doppler evidence for DVT in left lower extremity. Enlarged 2.0 cm left inguinal lymph node. Clinical follow-up is advised. 14:09 XRay of hip left (hip min 2 v w/ pelvis left) and XRay of tibia fibula left ordered. 15:28 XRay of tibia fibula left read and reviewed by radiologist IMPRESSION: No acute fracture or dislocation. 15:29 XRay of hip left (hip min 2 v w/ pelvis left) read and reviewed by radiologist IMPRESSION: No acute displaced fracture or dislocation. Please note occult fractures cannot be excluded on plain radiographs. If there is a persistent clinical concern, an MRI of the hip may be performed for further evaluation. Scribe Attestation: Documented by Marianna Back, acting as a scribe for Cici Campbell PA-C. Provider Scribe Attestation: All medical record entries made by the Susieibe were at my direction and personally dictated by me. I have reviewed the chart and agree that the record accurately reflects my personal performance of the history, physical exam, medical decision making, and the department course for this patient. I have also personally directed, reviewed, and agree with the discharge instructions and disposition. Disposition - Clinical Impression Clinical Impression: Leg pain, Fall - Patient ED Disposition Is Patient to be Admitted: No Counseled Patient/Family Regarding: Diagnosis, Need For Followup - Disposition Disposition: Routine/Home Disposition Time: 16:34 Condition: GOOD Prescriptions: oxyCODONE/Acetaminophen [Percocet 5/325 mg Tab] 1 ea PO Q6H PRN #15 tab PRN Reason: Pain, Severe (8-10) Instructions: Preventing Falls Forms: [facility] ([place]anian)
[2018-05-26 13:35] LABS: BASO % 0.8 % (0.0-2.0); EOS # 0.1 K/uL (0.0-0.7); EOS % 1.1 % (0.0-4.0); HEMOGLOBIN 11.5 g/dL (12.0-16.0); LYMPH % 16.9 % (20.0-40.0); MEAN CELL VOLUME 96.7 fl (81.0-99.0); MEAN CORPUSCULAR HEMOGLOBIN 31.9 pg (27.0-31.0); MEAN CORPUSCULAR HGB CONC 32.9 g/dL (33.0-37.0); MEAN PLATELET VOLUME 9.9 fl (7.2-11.7); MONO # 0.5 K/uL (0.0-0.8); MONO % 8.8 % (0.0-10.0); NEUT # 4.3 K/uL (1.8-7.0); NEUT % 72.4 % (50.0-75.0); RBC 3.6 Mil/uL (3.80-5.20); RED CELL DISTRIBUTION WIDTH 13.5 % (11.5-14.5)
[2018-05-26 13:45] LABS: ALB/GLOB RATIO 0.7 (1.0-2.1); ALBUMIN 3.1 g/dL (3.5-5.0); ALT/SGPT 45 U/L (9-52); AST/SGOT 78 U/L (14-36); BLOOD UREA NITROGEN 17 mg/dl (7-17); CALCIUM 8.8 mg/dL (8.4-10.2); GFR NON-AFRICAN AMERICAN > 60
--- NOTE | 2018-05-26 14:09 | US ---
Date of service: 05/26/2018 HISTORY: left leg pain. PRIORS: 07/12/2015. FINDINGS: 2-D, color and duplex Doppler analysis of the lower extremity venous circulation using routine protocol from the femoral veins through the popliteal veins. Venous compressibility: Normal. Flow and augmentation patterns: Normal. Visualized veins upper third of calf: Normal. Valladares cyst: None. There is an enlarged 2.0 x 0.7 x 0.6 cm left inguinal lymph node. IMPRESSION: No sonographic or Doppler evidence for DVT in left lower extremity. Enlarged 2.0 cm left inguinal lymph node. Clinical follow-up is advised.
[2018-05-26 14:28] LABS: SQUAMOUS EPITHIAL < 1 /hpf (0-5); URINE AMORPHOUS SEDIMENT RARE /ul (<OCC); URINE BACTERIA RARE (<OCC); URINE BILIRUBIN NEGATIVE (NEGATIVE); URINE BLOOD NEGATIVE (NEGATIVE); URINE CLARITY SLIGHTY-CLOUDY (Clear); URINE COLOR AMBER (YELLOW); URINE GLUCOSE (UA) NEG (NEGATIVE); URINE LEUKOCYTE ESTERASE NEG Leu/uL (Negative); URINE PROTEIN NEGATIVE (NEGATIVE)
--- NOTE | 2018-05-26 14:31 | CARD ---
APPROVED REPORT Date of service: 05/26/2018 EKG Measurement Heart [id number] <Conclusion> Normal sinus rhythm Possible Left atrial enlargement Borderline ECG
--- NOTE | 2018-05-26 15:32 | RAD ---
Date of service: 05/26/2018 PROCEDURE: Radiographs of the left tibia and fibula. HISTORY: Pain, fall COMPARISON: None available. TECHNIQUE: Frontal and lateral views obtained. FINDINGS: BONES: There is diffuse bone demineralization. No acute displaced fracture or bone destruction. Bone alignment is normal JOINT SPACES: The joint spaces are preserved. OTHER FINDINGS: None. IMPRESSION: No acute fracture or dislocation.
--- NOTE | 2018-05-26 15:33 | RAD ---
PROCEDURE: Left Hip X-ray Radiographs. HISTORY: pain, fall COMPARISON: None. FINDINGS: BONES: There is diffuse bone demineralization. No acute displaced fracture or bone destruction. Bone alignment is normal. JOINTS: Normal. SOFT TISSUES: Normal. OTHER FINDINGS: None. IMPRESSION: No acute displaced fracture or dislocation. Please note occult fractures cannot be excluded on plain radiographs. If there is a persistent clinical concern, an MRI of the hip may be performed for further evaluation.
[2018-05-26 18:58] VITALS: BP 124/70; PULSE 90; RESP 20; TEMP 98.2; O2SAT 96
== END 2018-05-26 18:59 | disposition home or self-care (01) ==
LOC: H.ER 12:16
DX: M79.605 Pain in left leg (principal); W01.0XXA Fall on same level from slipping, tripping and stumbling without subsequent striking against object, initial encounter; I11.0 Hypertensive heart disease with heart failure; E78.00 Pure hypercholesterolemia, unspecified